=== PATIENT | male | born 1940 | race Hispanic/Latino ===

== ENCOUNTER 2021-02-02 18:08 | Inpatient (IN) | payer MEDICARE ==
[~2021-02-02] VITALS: Ht 172.7 cm; Wt 56.2 kg
[2021-02-02 18:29] LABS: BASOPHILS % (AUTO) 0.1 % (0.0-5.0); EOSINOPHILS % (AUTO) 0.7 % (0.0-8.0); HEMATOCRIT 41.3 % (42-54); LYMPHOCYTES % (AUTO) 2.4 % (21.0-51.0); MEAN CORPUSCULAR HEMOGLOBIN 35.8 pg (27.0-33.0); MEAN CORPUSCULAR HGB CONC 35.6 g/dL (32.0-36.0); MEAN CORPUSCULAR VOLUME 100.5 fL (79-99); MONOCYTES % (AUTO) 7.1 % (3.0-13.0); NEUTROPHILS % (AUTO) 89.5 % (40.0-77.0); PLATELET COUNT (AUTO) 184 K/uL (130-400); RED BLOOD CELL COUNT(AUTO) 4.11 MIL/uL (4.50-6.20); RED CELL DISTRIBUTION WIDTH 15.2 % (11.0-15.5); WHITE BLOOD COUNT (AUTO) 8.3 K/uL (4.8-10.8)
[2021-02-02] MEDS ORDERED: 0.9%NACL 1000ML 1,000 ML IV ONE ×2 (18:30→22:00)
[2021-02-02 18:34] LABS: BILIRUBIN,URINE Negative (NEGATIVE); COLOR,URINE Yellow (YELLOW); GLUCOSE, URINE (UA) Negative (NEGATIVE); KETONES,URINE Negative (NEGATIVE); LEUKOCYTE ESTERASE ,URINE Negative (NEGATIVE); NITRATE,URINE Negative (NEGATIVE); OCCULT BLOOD,URINE Small (NEGATIVE); PH,URINE 7.5 (5.0-8.0); PROTEIN,URINE POS 2+ mg/dL (NEGATIVE)
[2021-02-02 18:37] LABS: APPEARANCE,URINE CLEAR (CLEAR)
[2021-02-02 18:42] LABS: BACTERIA,URINE Few /HPF (None Seen); WBC,URINE 0-1 /HPF (0-1)
[2021-02-02 18:43] LABS: MUCUS,URINE Few LPF (None Seen); SQUAMOUS EPITHELIAL CELL,UR Rare /HPF (0-2)
[2021-02-02 18:44] LABS: COARSE GRANULAR CASTS,URINE 0-2 /LPF (None Seen)
[2021-02-02 18:46] LABS: ALBUMIN 3.1 g/dL (3.5-5.0); BILIRUBIN,TOTAL 1.4 mg/dL (0.2-1.0); CREATININE 0.6 mg/dL (0.5-1.5); POTASSIUM 3.2 mmol/L (3.5-5.1); TOTAL PROTEIN, SERUM 6.2 g/dL (6.0-8.3)
[2021-02-02] MEDS ORDERED: CEFTRIAXONE 1G VIAL IVP ONE (22:00)
[2021-02-02] MEDS ORDERED: AZITHROMYCIN 500MG+NS 250ML 250 ML IV ONE (22:00)
[2021-02-02] MEDS ORDERED: NITROGLYCERIN 0.4 MG SL TAB SL PRN (22:00)
[2021-02-02] MEDS ORDERED: GUAIFENESIN-DM 200/20 MG 10 ML PO PRN (22:00)
[2021-02-02] MEDS ORDERED: MAG/ALUM/SIMETH 30 ML UDCUP PO PRN (22:00)
[2021-02-02] MEDS ORDERED: LACTULOSE 20 GM/30 ML UDCUP PO PRN (22:00)
[2021-02-02] MEDS ORDERED: AZITHROMYCIN 500MG VIAL IVPB ONE (22:00)
[2021-02-02] MEDS ORDERED: ONDANSETRON 4MG INJ IV PRN (22:00)
[2021-02-02] MEDS ORDERED: ACETAMINOPHEN 325 MG TAB PO PRN ×2 (22:00)
[2021-02-02] MEDS: 0.9%NACL 1000ML 1,000 ML IV SCH (22:13)
[2021-02-02 23:26] LABS: ABG BASE EXCESS 1.1 mmol/L (-2.0-3.0); ABG HCO3 24.8 mmol/L (21.0-28.0); ABG OXYGEN SATURATION 95.8 % (95.0-99.0); ABG PCO2 37 mmHg (35-48)
[2021-02-02] MEDS ORDERED: BENZONATATE 100 MG CAPSULE PO PRN (23:30)
[2021-02-02] MEDS ORDERED: KCL 20 MEQ ERTAB PO PRN (23:30)
[2021-02-02] MEDS ORDERED: MAGNESIUM 2GM PREMIX 50ML 50 ML IV PRN (23:30)
[2021-02-02] MEDS ORDERED: HYDRALAZINE 20MG/ML VIAL IV PRN (23:30)
[2021-02-02] MEDS ORDERED: LABETALOL 20MG SYG IV PRN (23:30)
[2021-02-02] MEDS ORDERED: 0.9% NACL 250ML IVPB SCH (23:30)
[2021-02-02] MEDS ORDERED: GLUCAGON 1MG KIT 1 MG ML IM PRN (23:30)
[2021-02-02] MEDS ORDERED: DEXTROSE 50%-WATER 50 ML DISP.SYRIN IV PRN (23:30)
[2021-02-02] MEDS ORDERED: SODIUM CHLORIDE 1,000 MG TAB PO STA (23:36)
[2021-02-02] MEDS ORDERED: AZITHROMYCIN 500MG+NS 250ML 250 ML IV SCH (23:45)
[2021-02-03 00:15] VITALS: BP 168/94
[2021-02-03] MEDS: SOLU-MEDROL 40MG VIAL IVP SCH ×3 (01:05→15:18)
[2021-02-03 02:45] LABS: BASOPHILS % (AUTO) 0.1 % (0.0-5.0); EOSINOPHILS % (AUTO) 0.1 % (0.0-8.0); HEMATOCRIT 40.8 % (42-54); LYMPHOCYTES % (AUTO) 0.9 % (21.0-51.0); MEAN CORPUSCULAR HEMOGLOBIN 35.3 pg (27.0-33.0); MEAN CORPUSCULAR HGB CONC 35.3 g/dL (32.0-36.0); MONOCYTES % (AUTO) 3.9 % (3.0-13.0); NEUTROPHILS % (AUTO) 94.5 % (40.0-77.0); PLATELET COUNT (AUTO) 176 K/uL (130-400); RED BLOOD CELL COUNT(AUTO) 4.08 MIL/uL (4.50-6.20); RED CELL DISTRIBUTION WIDTH 15.4 % (11.0-15.5); WHITE BLOOD COUNT (AUTO) 10.9 K/uL (4.8-10.8)
[2021-02-03 03:12] LABS: BILIRUBIN,DIRECT 0.4 mg/dL (0.0-0.3); BILIRUBIN,TOTAL 1.2 mg/dL (0.2-1.0); CREATININE 0.6 mg/dL (0.5-1.5); HEMOGLOBIN A1C 5.2 % (4.0-6.0); POTASSIUM 3.1 mmol/L (3.5-5.1); THYROID STIMULATING HORMONE 1.19 uIU/mL (0.36-3.74); TOTAL PROTEIN, SERUM 6.1 g/dL (6.0-8.3)
[2021-02-03 03:28] LABS: B-TYPE NATRIURETIC PEPTIDE 81 pg/mL (0-100)
[2021-02-03 04:00] VITALS: BP 163/96
[2021-02-03] MEDS: INSULIN HUMULIN R 100 UNIT/ML 3ML SQ SCH ×4 (06:32→20:46)
[2021-02-03] MEDS: POTASSIUM CHLORIDE 20MEQ/100ML 100 ML IV PRN (06:55)
[2021-02-03 07:55] VITALS: BP 166/109
[2021-02-03] MEDS: 0.9%NACL 1000ML 1,000 ML IV SCH ×2 (08:00→18:06)
[2021-02-03] MEDS ORDERED: CEFTRIAXONE 1G VIAL IVP SCH (09:00)
[2021-02-03] MEDS ORDERED: ENOXAPARIN SODIUM 30 MG/0.3 ML SQ SCH (09:00)
[2021-02-03] MEDS ORDERED: MUPI22O TP (10:41)
[2021-02-03] MEDS ORDERED: PAZO200T PO (10:41)
[2021-02-03] MEDS ORDERED: ATOR40TA69 PO (10:41)
[2021-02-03] MEDS ORDERED: CYCL30DR OP (10:41)
[2021-02-03] MEDS ORDERED: PRED10TA3 PO (10:41)
[2021-02-03] MEDS ORDERED: FENT-77 TD (10:41)
[2021-02-03] MEDS ORDERED: PREG75CA75 PO (10:41)
[2021-02-03] MEDS ORDERED: TRAM50TA4 PO (10:41)
[2021-02-03] MEDS ORDERED: LOPE2CAP PO (10:41)
[2021-02-03] MEDS ORDERED: CARV6.25 PO (10:41)
[2021-02-03] MEDS ORDERED: APIX5TAB PO (10:41)
[2021-02-03] MEDS ORDERED: PANT40SU PO (10:41)
[2021-02-03] MEDS ORDERED: LEVO50CA4 PO (10:41)
[2021-02-03] MEDS ORDERED: ONDA8TAB12 PO (10:41)
[2021-02-03] MEDS ORDERED: CARB15DR OP (10:41)
[2021-02-03] MEDS ORDERED: ASPI-1197 PO (10:41)
[2021-02-03] MEDS: FAMOTIDINE 20MG VIAL IV SCH (10:48)
[2021-02-03 11:54] VITALS: BP 130/58
[2021-02-03] MEDS ORDERED: HYDROMORPHONE 0.5 MG SYG (0.5MG/0.5ML) IVP PRN ×2 (12:00)
[2021-02-03] MEDS ORDERED: HYDRALAZINE 20MG/ML VIAL IV PRN (12:00)
[2021-02-03] MEDS ORDERED: IOHEXOL-350 50ML VIAL IV ONE (13:21)
[2021-02-03 15:56] VITALS: BP 125/95
[2021-02-03 20:00] VITALS: BP 161/89
[2021-02-03] MEDS: BALSAM PERU/CASTOR OIL 60 GM TUBE TP SCH (20:51)
[2021-02-03] MEDS: ZOSYN 3.375GM +NS 50ML IV SCH (23:20)
[2021-02-03] MEDS ORDERED: AZITHROMYCIN 500MG+NS 250ML 250 ML IV SCH (23:30)
[2021-02-03] MEDS ORDERED: AZITHROMYCIN 500MG VIAL IVPB SCH (23:30)
[2021-02-04] VITALS (7 sets, daily range): BP systolic 133–169; BP diastolic 65–107
[2021-02-04 04:50] LABS: HEMATOCRIT 36.9 % (42-54); MEAN CORPUSCULAR HEMOGLOBIN 34.7 pg (27.0-33.0); MEAN CORPUSCULAR HGB CONC 34.1 g/dL (32.0-36.0); MEAN CORPUSCULAR VOLUME 101.7 fL (79-99); RED BLOOD CELL COUNT(AUTO) 3.63 MIL/uL (4.50-6.20); WHITE BLOOD COUNT (AUTO) 5.9 K/uL (4.8-10.8)
[2021-02-04] MEDS: 0.9%NACL 1000ML 1,000 ML IV SCH ×2 (04:50→15:00)
[2021-02-04 05:07] LABS: ALBUMIN 2.6 g/dL (3.5-5.0); BILIRUBIN,TOTAL 1.2 mg/dL (0.2-1.0); CREATININE 0.5 mg/dL (0.5-1.5); POTASSIUM 3.3 mmol/L (3.5-5.1); TOTAL PROTEIN, SERUM 5.5 g/dL (6.0-8.3)
[2021-02-04] MEDS: INSULIN HUMULIN R 100 UNIT/ML 3ML SQ SCH ×4 (06:16→20:08)
[2021-02-04] MEDS: ZOSYN 3.375GM +NS 50ML IV SCH ×3 (06:36→19:55)
[2021-02-04] MEDS: BALSAM PERU/CASTOR OIL 60 GM TUBE TP SCH ×2 (08:09→20:08)
[2021-02-04] MEDS: FAMOTIDINE 20MG VIAL IV SCH (08:09)
[2021-02-04] MEDS: POTASSIUM CHLORIDE 20MEQ/100ML 100 ML IV PRN (11:37)
[2021-02-04] MEDS: LIDOCAINE HCL-MPF 1% 2ML VIAL IV PRN (11:38)
[2021-02-05] VITALS: BP 139/90
[2021-02-05 04:00] VITALS: BP 160/97
[2021-02-05 04:57] LABS: BASOPHILS % (AUTO) 0.1 % (0.0-5.0); EOSINOPHILS % (AUTO) 0.1 % (0.0-8.0); LYMPHOCYTES % (AUTO) 1.5 % (21.0-51.0); MEAN CORPUSCULAR HEMOGLOBIN 35.4 pg (27.0-33.0); MEAN CORPUSCULAR HGB CONC 35.8 g/dL (32.0-36.0); MONOCYTES % (AUTO) 6.8 % (3.0-13.0); NEUTROPHILS % (AUTO) 91.1 % (40.0-77.0); PLATELET COUNT (AUTO) 151 K/uL (130-400); RED BLOOD CELL COUNT(AUTO) 3.84 MIL/uL (4.50-6.20); RED CELL DISTRIBUTION WIDTH 15.4 % (11.0-15.5); WHITE BLOOD COUNT (AUTO) 8.9 K/uL (4.8-10.8)
[2021-02-05 05:13] LABS: ALBUMIN 2.8 g/dL (3.5-5.0); BILIRUBIN,TOTAL 1.2 mg/dL (0.2-1.0); CREATININE 0.5 mg/dL (0.5-1.5); MAGNESIUM 1.9 mg/dL (1.80-2.40); PHOSPHORUS 2.1 mg/dL (2.5-4.9); TOTAL PROTEIN, SERUM 5.6 g/dL (6.0-8.3)
[2021-02-05 05:15] LABS: POTASSIUM 2.5 mmol/L (3.5-5.1)
[2021-02-05] MEDS: INSULIN HUMULIN R 100 UNIT/ML 3ML SQ SCH ×3 (05:25→16:06)
[2021-02-05] MEDS: ZOSYN 3.375GM +NS 50ML IV SCH ×2 (05:27→14:25)
[2021-02-05] MEDS: POTASSIUM CHLORIDE 20MEQ/100ML 100 ML IV PRN (05:27)
[2021-02-05] MEDS: LIDOCAINE HCL-MPF 1% 2ML VIAL IV PRN (05:55)
[2021-02-05 07:54] VITALS: BP 160/94
[2021-02-05] MEDS: FAMOTIDINE 20MG VIAL IV SCH (10:14)
[2021-02-05] MEDS: 0.9%NACL 1000ML 1,000 ML IV SCH ×2 (11:20)
[2021-02-05] MEDS: POTASSIUM CHLORIDE 10% ELIXIR 20 MEQ/15 ML UDCUP PO PRN ×2 (11:30→13:56)
[2021-02-05 12:00] VITALS: BP 164/91
[2021-02-05] MEDS: BALSAM PERU/CASTOR OIL 60 GM TUBE TP SCH (13:27)
[2021-02-05 16:00] VITALS: BP 160/88
== END 2021-02-05 19:00 | disposition home or self-care (01) | DRG 70 ==
LOC: EDH 18:08 → OBSVTOIN 21:51 → EDHIP 21:51 → 3BH 23:49
PROVIDERS: ADMIT Internal Medicine Critical Care Medicine; ATTEND Internal Medicine Critical Care Medicine
DX: G93.41 Metabolic encephalopathy (principal); J18.9 Pneumonia, unspecified organism; E87.1 Hypo-osmolality and hyponatremia; I69.351 Hemiplegia and hemiparesis following cerebral infarction affecting right dominant side; E44.0 Moderate protein-calorie malnutrition; Z68.1 Body mass index [BMI] 19.9 or less, adult; C64.9 Malignant neoplasm of unspecified kidney, except renal pelvis; I10 Essential (primary) hypertension; E87.8 Other disorders of electrolyte and fluid balance, not elsewhere classified; E87.6 Hypokalemia; L89.312 Pressure ulcer of right buttock, stage 2; J44.9 Chronic obstructive pulmonary disease, unspecified; K57.90 Diverticulosis of intestine, part unspecified, without perforation or abscess without bleeding; Z66 Do not resuscitate; E86.0 Dehydration; Z93.1 Gastrostomy status; Z79.899 Other long term (current) drug therapy; Z79.01 Long term (current) use of anticoagulants; Z79.82 Long term (current) use of aspirin; T50.905A Adverse effect of unspecified drugs, medicaments and biological substances, initial encounter; Y92.89 Other specified places as the place of occurrence of the external cause
CPT/HCPCS: 36415; 36600; 70450; 70470; 71045; 71250; 74176; 80048; 80053; 80076; 81001; 82140; 82550; 82607; 82746; 82803; 82948; 83036; 83605; 83735; 83880; 84100; 84145; 84443; 84484; 85025; 85027; 87040; 87088; 93005; 99291; G0378; J0360; J0456; J0696; J2543; J2920; J3480; J3490; J7030; Q9967